=== PATIENT | male | born 1990 | race Caucasian/White ===

== ENCOUNTER 2016-03-07 20:18 | Emergency (ER) | payer OTHER, SELFPAY ==
[2016-03-07 22:04] VITALS: O2SAT 98
[2016-03-07] MEDS ORDERED: TORAdol 30 mg Injection IM ONE (22:31)
[2016-03-07] MEDS ORDERED: Norflex 60 MG/2 ML IM ONE (22:31)
[2016-03-07] MEDS ORDERED: TORAdol 30 mg Injection ONE (22:42)
[2016-03-07] MEDS ORDERED: Norflex 60 MG/2 ML ONE (22:42)
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
[2016-03-08] MEDS ORDERED: NORCO 5/325 MG PO ONE (01:28)
[2016-03-08] MEDS ORDERED: NORCO 5/325 MG ONE (01:49)
[2016-03-08 02:10] VITALS: BP 130/80; PULSE 80
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
== END 2016-03-08 02:08 | disposition home or self-care (01) ==
LOC: ED 20:18
DX: S13.9XXA Sprain of joints and ligaments of unspecified parts of neck, initial encounter (principal); V49.49XA Driver injured in collision with other motor vehicles in traffic accident, initial encounter
CPT/HCPCS: 72125; 72128; 96372; 99283; J1885; J2360

== ENCOUNTER 2020-02-27 13:38 | Emergency (ER) | payer MEDICAID, OTHER ==
[2020-02-27 15:13] VITALS: BP 122/62
[2020-02-27 16:03] VITALS: PULSE 57; O2SAT 97
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
--- NOTE | 2020-02-27 19:38 | XRAY ---
Indication: Laceration. Possible foreign body. Comparison: June 11, 2014. 3 view left hand demonstrates new soft tissue laceration/emphysema between the 1st and 2nd digits. No other bony, articular, or soft tissue abnormalities.
== END 2020-02-27 17:04 | disposition home or self-care (01) ==
LOC: ED 13:38
DX: S61.412A Laceration without foreign body of left hand, initial encounter (principal); S91.311A Laceration without foreign body, right foot, initial encounter; W26.0XXA Contact with knife, initial encounter; Y93.89 Activity, other specified; Y92.89 Other specified places as the place of occurrence of the external cause
CPT/HCPCS: 12001; 73130; 99283